=== PATIENT | female | born 2000 ===

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

== ENCOUNTER 2018-01-17 02:31 | Emergency (ER) | payer MEDICAID ==
[2018-01-17 03:03] VITALS: BMI 23.8
[2018-01-17 03:09] VITALS: O2SAT 100
[2018-01-17] MEDS ORDERED: Sodium Chloride 0.9% 1,000 ML IV STA ×2 (03:36→03:37)
--- NOTE | 2018-01-17 03:40 | ED PDOC ---
HPI: General Adult Chief Complaint (Provider): rash History Per: Patient History/Exam Limitations: no limitations Onset/Duration Of Symptoms: Days (2) Current Symptoms Are (Timing): Still Present Additional Complaint(s): 17 y/o female presents for evaluation of pruritic rash x 2 days. States she just finished a 10-day course of Bactrim DS for a urinary tract infection. Denies facial swelling, difficulty speaking/swallowing. Patient also reports developing a fever last night, with ear and throat pain, and nasal congestion. Denies cough, chest pain, shortness of breath, palpitations, abdominal pain, urinary symptoms. <Daniella Grider - Last Filed: 01/18/18 00:37> <Emiliano Collier - Last Filed: 01/18/18 03:49> Time Seen by Provider: 01/17/18 03:10 Chief Complaint (Nursing): Allergic Reaction Past Medical History Reviewed: Historical Data, Nursing Documentation, Vital Signs Vital Signs: Last Vital Signs Temp 99.2 F 01/17/18 03:03 Pulse 95 H 01/17/18 03:03 Resp 18 01/17/18 03:03 BP 99/61 L 01/17/18 03:03 Pulse Ox 100 01/17/18 03:03 - Medical History PMH: Depression Denies: Diabetes, Hepatitis, HIV, HTN, Seizures, Sexually Transmitted Disease - Surgical History Surgical History: No Surg Hx - Family History Family History: States: No Known Family Hx - Living Arrangements Living Arrangements: Alone - Social History Drugs: Cocaine <Daniella Grider - Last Filed: 01/18/18 00:37> Vital Signs: Last Vital Signs Temp 98.9 F 01/17/18 05:47 Pulse 103 H 01/17/18 06:44 Resp 16 01/17/18 06:44 BP 110/57 L 01/17/18 06:44 Pulse Ox 100 01/18/18 00:38 <Emiliano Collier - Last Filed: 01/18/18 03:49> - Home Medications Home Medications: Ambulatory Orders Medication Instructions Recorded Cetirizine HCl [Zyrtec] 10 mg PO DAILY #5 tab.rapdis 01/17/18 Famotidine [Pepcid] 20 mg PO BID #8 tab 01/17/18 Fluticasone Nasal [Flonase] 1 actuation NS BID #1 bottle 01/17/18 RX: Azithromycin [Zithromax] 250 mg PO DAILY #1 packet 01/17/18 RX: Prednisone 50 mg PO DAILY #4 tablet 01/17/18 - Allergies Allergies/Adverse Reactions: Allergies Allergy/AdvReac Type Severity Reaction Status Date / Time sulfamethoxazole AdvReac RASH Verified 01/17/18 05:29 [From Bactrim] trimethoprim [From Bactrim] AdvReac RASH Verified 01/17/18 05:29 Review of Systems ROS Statement: Except As Marked, All Systems Reviewed And Found Negative Constitutional: Positive for: Fever, Chills ENT: Positive for: Ear Pain, Throat Pain Skin: Positive for: Rash <Daniella Grider C - Last Filed: 01/18/18 00:37> Physical Exam - Reviewed Nursing Documentation Reviewed: Yes Vital Signs Reviewed: Yes - Physical Exam Appears: Positive for: Well, Non-toxic, Uncomfortable Head Exam: Positive for: ATRAUMATIC, NORMAL INSPECTION, NORMOCEPHALIC Skin: Positive for: Rash (diffuse urticarial rash) Eye Exam: Positive for: Normal appearance ENT: Positive for: TM Is/Are (clear), Pharyngeal Erythema. Negative for: Tonsillar Exudate, Tonsillar Swelling Cardiovascular/Chest: Positive for: Regular Rate, Rhythm Respiratory: Positive for: Normal Breath Sounds Gastrointestinal/Abdominal: Positive for: Normal Exam Back: Positive for: Normal Inspection Extremity: Positive for: Normal ROM Lymphatic: Positive for: Adenopathy (left cervical, left occipital; mobile, nontender) Neurologic/Psych: Positive for: Alert, Oriented (x3) <Daniella Grider C - Last Filed: 01/18/18 00:37> - ECG O2 Sat by Pulse Oximetry: 100 - Progress ED Course And Treament: flu, strep, urine, Solumedrol IM, benadryl PO, pepcid PO 5:45 Patient sleeping; upon awakening states she is feeling better Rash visibly improving Patient educated on findings, discharged with rx Prednisone, Pepcid, Zyrtec, Flonase, Zpak Advised fluids, rest Tylenol/Ibuprofen PRN Follow up PMD 2-3 days Return precautions given <Daniella Grider - Last Filed: 01/18/18 00:37> Disposition - Patient ED Disposition Is Patient to be Admitted: No Counseled Patient/Family Regarding: Studies Performed, Diagnosis, Need For Followup, Rx Given - Disposition Disposition: Routine/Home Disposition Time: 05:47 <Daniella Grider - Last Filed: 01/18/18 00:37> <Emiliano Collier - Last Filed: 01/18/18 03:49> - Clinical Impression Clinical Impression: Rash and nonspecific skin eruption, URI (upper respiratory infection) - Disposition Condition: IMPROVED Prescriptions: RX: Azithromycin [Zithromax] 250 mg PO DAILY #1 packet Cetirizine HCl [Zyrtec] 10 mg PO DAILY #5 tab.rapdis Famotidine [Pepcid] 20 mg PO BID #8 tab Fluticasone Nasal [Flonase] 1 actuation NS BID #1 bottle RX: Prednisone 50 mg PO DAILY #4 tablet Instructions: Viral Upper Respiratory Infection, Adult (DC), Drug Allergy Forms: [facility] (Yoruba) - PA / [employer] / Resident Statement MD/DO has reviewed & agrees with the documentation as recorded. <Emiliano Collier - Last Filed: 01/18/18 03:49>
[2018-01-17 04:34] LABS: SQUAMOUS EPITHIAL 11 /hpf (0-5); URINE BILIRUBIN NEGATIVE (NEGATIVE); URINE BLOOD NEGATIVE (NEGATIVE); URINE CLARITY CLOUDY (Clear); URINE COLOR YELLOW (YELLOW); URINE GLUCOSE (UA) NEG (Normal); URINE LEUKOCYTE ESTERASE SMALL Leu/uL (Negative); URINE PROTEIN 30 mg/dL (NEGATIVE)
[2018-01-17 05:47] VITALS: BP 110/57; PULSE 103; RESP 16; TEMP 98.9
== END 2018-01-17 06:46 | disposition home or self-care (01) ==
LOC: H.ER 02:31
DX: R21 Rash and other nonspecific skin eruption (principal); J06.9 Acute upper respiratory infection, unspecified
CPT/HCPCS: 81003; 87070; 87086; 87430; 87804; 96372; 99283; J2930